=== PATIENT | female | born 1955 | race Caucasian/White ===

== ENCOUNTER 2018-01-20 12:03 | Emergency (ER) | payer OTHER ==
[~2018-01-20] VITALS: Ht 162.6 cm; Wt 77.1 kg
[2018-01-20] MEDS ORDERED: LEVEMIR SUBQ (12:19)
[2018-01-20] MEDS ORDERED: TRAMADOL 50 MG50 MG PO (12:20)
[2018-01-20 12:59] LABS: ABSOLUTE BASOPHILS 0.1 thou/uL (0.0-0.2); ABSOLUTE EOSINOPHILS 0.2 thou/uL (0.0-0.7); ABSOLUTE LYMPHOCYTES 2.3 thou/uL (0.8-5.3); ABSOLUTE MONOCYTES 0.7 thou/uL (0.0-1.2); ABSOLUTE NEUTROPHILS 6.1 thou/uL (1.6-8.1); BASOPHILS 1.3 %; EOSINOPHILS 1.6 %; HEMATOCRIT 43.7 % (37.0-47.0); HEMOGLOBIN 14.7 gm/dL (12.0-15.0); LYMPHOCYTES 24.8 %; MCH 27.5 pg (26.0-34.0); MCHC 33.6 g/dL (28.0-37.0); MCV 81.7 fL (80.0-100.0); MONOCYTES 7.5 %; MPV 8.2 fl. (7.2-11.1); NUCLEATED RBCS 0 /100WBC; PLATELET COUNT* 268 thou/uL (150-400); POLYS 64.8 %; RBC 5.35 mil/uL (4.20-5.00); RDW-CV 14.6 % (10.5-14.5); WBC 9.4 thou/uL (4.0-11.0)
[2018-01-20 13:06] LABS: ANION GAP 9 mmol/L (7-16); BUN 16 mg/dL (7-18); CALCIUM 8.7 mg/dL (8.5-10.1); CHLORIDE 102 mmol/L (98-107); CO2 27 mmol/L (21-32); CREATININE 0.7 mg/dL (0.6-1.3); GLUCOSE 216 mg/dL (70-99); SODIUM 138 mmol/L (136-145)
[2018-01-20 13:16] LABS: ALBUMIN 3.8 g/dL (3.4-5.0); ALKALINE PHOSPHATASE 99 U/L (46-116); SGOT 16 U/L (15-37); SGPT 21 U/L (30-65); TOTAL BILIRUBIN 0.4 mg/dL (<0.1-1.0); TOTAL PROTEIN 7.3 g/dL (6.4-8.2); TROPONIN-I LEVEL <0.06 ng/mL (<0.06)
[2018-01-20 13:48] VITALS: BP 116/58
--- NOTE | 2018-01-20 17:23 | EKG ---
[place] [address] ELECTROCARDIOGRAM REPORT Name: NITAHARVEY Chiara Room: [facility]#: [id number] Admission: 01/20/18 Attend Phys: Discharge: Date of : 55 Report #: [id number] THIS REPORT FOR: //name// [facility] ED Test Date: 2018-01-20 Test Time: 12:11:43 Pat Name: HARVEY MOYA Department: Room: Gender: F [employer] Video Editor: Zak COY : 1955 Requested By: Rocael Guerrero Order Number: [id number] MD: Lopez Goldstein Measurements Intervals [place] Rate: 81 P: 15 IL: 113 QRS: 1 QRSD: 91 T: 31 QT: 387 QTc: 450 Interpretive Statements Sinus rhythm Borderline short [place] interval Low voltage, precordial leads Abnormal R-wave progression, early transition No previous ECG available for comparison Electronically Signed On 01-20-2018 17:23:43 [employer] by Lopez Goldstein [email or web address] <ELECTRONICALLY SIGNED> By: Lopez Goldstein MD, [facility] 01/20/18 1723 121 121 Lopez Goldstein MD, [facility] /EPI
== END 2018-01-20 13:49 | disposition home or self-care (01) ==
LOC: M.ERS 12:03
PROVIDERS: Physician Assistant
DX: R07.9 Chest pain, unspecified (principal); E11.9 Type 2 diabetes mellitus without complications; Z88.2 Allergy status to sulfonamides; Z79.4 Long term (current) use of insulin